=== PATIENT | male | born 1940 | race Caucasian/White ===

== ENCOUNTER 2021-01-25 16:40 | Emergency (ER) | payer BC, MEDICARE ==
[~2021-01-25] VITALS: Ht 195.6 cm; Wt 117.9 kg
--- NOTE | 2021-01-25 17:14 | NUR ---
at bedside for assessment
[2021-01-25] MEDS ORDERED: FAMOTIDINE 20 MG TABLET PO ONE (17:15)
[2021-01-25] MEDS ORDERED: DEXAMETHASONE 5 MG/5 ML LIQUID UDC PO ONE (17:15)
[2021-01-25] MEDS ORDERED: ONDANSETRON ODT 4 MG TAB.RAPDIS SL ONE (17:15)
[2021-01-25] MEDS ORDERED: ROSU10TA2 PO (17:16)
[2021-01-25] MEDS ORDERED: POLY17PO4 PO (17:16)
[2021-01-25] MEDS ORDERED: EPOE1000 IJ (17:16)
[2021-01-25] MEDS ORDERED: METO25TA6 PO (17:16)
[2021-01-25] MEDS ORDERED: CLOP75TA15 PO (17:16)
[2021-01-25] MEDS ORDERED: INSU100C SQ (17:16)
[2021-01-25] MEDS ORDERED: CALC0.253 PO (17:16)
[2021-01-25] MEDS ORDERED: LACT10SO3 PO (17:16)
[2021-01-25] MEDS ORDERED: FOLI0.8T2 PO (17:16)
[2021-01-25] MEDS ORDERED: SEVE800T8 PO (17:16)
[2021-01-25] MEDS ORDERED: PANT40TA49 PO (17:16)
[2021-01-25] MEDS ORDERED: ASPI-612 PO (17:16)
[2021-01-25] MEDS ORDERED: ONDANSETRON ODT 4 MG TAB.RAPDIS ONE (17:22)
[2021-01-25] MEDS ORDERED: FAMOTIDINE 20 MG TABLET ONE (17:22)
[2021-01-25] MEDS ORDERED: DEXAMETHASONE 5 MG/5 ML LIQUID UDC ONE (17:26)
[2021-01-25] MEDS ORDERED: PRED20TA PO (17:41)
[2021-01-25] MEDS ORDERED: DIPH25CA83 PO (17:41)
[2021-01-25] MEDS ORDERED: EPIN0.3A4 IM (17:41)
[2021-01-25 18:43] LABS: CARBON DIOXIDE 25 mmol/L (21-32); CHLORIDE 107 mmol/L (98-107); CREATININE 4.6 mg/dL (0.6-1.3); GLUCOSE 193 mg/dL (74-106); POTASSIUM 3.9 mmol/L (3.5-5.1); UREA NITROGEN, BLOOD 78 mg/dL (7-18)
[2021-01-25 18:48] LABS: BASOPHILS % (AUTO) 0.4 % (0.0-2.0); EOSINOPHILS % (AUTO) 0.1 % (0.0-7.0); HEMOGLOBIN 8.2 g/dL (12.5-16.3); LYMPHOCYTES # (AUTO) 0.2 K/uL (20.0-40.0); LYMPHOCYTES % (AUTO) 1.3 % (20.5-51.5); MEAN CORPUSCULAR HEMOGLOBIN 31.1 uug (23.8-33.4); MEAN CORPUSCULAR HGB CONC 31 g/dL (32.5-36.3); MEAN CORPUSCULAR VOLUME 99.2 fL (73.0-96.2); MONOCYTES # (AUTO) 0.2 K/uL (2.0-10.0); MONOCYTES % (AUTO) 1.6 % (0.0-11.0); NEUTROPHILS # (AUTO) 12.8 K/uL (1.8-8.9); NEUTROPHILS % (AUTO) 96.6 % (38.5-71.5); PLATELET COUNT (AUTO) 248 K/uL (152-348); RED BLOOD CELL COUNT(AUTO) 2.62 MIL/uL (4.06-5.63); WHITE BLOOD COUNT (AUTO) 13.2 K/uL (3.6-10.2)
[2021-01-25 19:32] VITALS: BP 119/64
--- NOTE | 2021-01-25 19:32 | NUR ---
Patient discharged to home in stable condition. Written and verbal after care instructions given. Patient verbalizes understanding of instructions. Stressed follow up or return to ER for worsening s/s. Steady gait. Belongings with patient.
== END 2021-01-25 19:33 | disposition left against medical advice (07) ==
LOC: ER 16:42
DX: L50.0 Allergic urticaria (principal); T45.4X5A Adverse effect of iron and its compounds, initial encounter; Y92.89 Other specified places as the place of occurrence of the external cause; I48.91 Unspecified atrial fibrillation; Z79.02 Long term (current) use of antithrombotics/antiplatelets; Z85.46 Personal history of malignant neoplasm of prostate; D50.9 Iron deficiency anemia, unspecified; Q27.33 Arteriovenous malformation of digestive system vessel; I45.10 Unspecified right bundle-branch block; E11.22 Type 2 diabetes mellitus with diabetic chronic kidney disease; I13.2 Hypertensive heart and chronic kidney disease with heart failure and with stage 5 chronic kidney disease, or end stage renal disease; I50.9 Heart failure, unspecified; N18.6 End stage renal disease; Z99.2 Dependence on renal dialysis; Z87.11 Personal history of peptic ulcer disease
CPT/HCPCS: 36415; 80048; 82962; 84484; 85025; 93005; 99291; 99292; J8540; 70030-TC; A4663; Q0162

== ENCOUNTER 2023-05-09 15:21 | Emergency (ER) | payer BC ==
[~2023-05-09] VITALS: Ht 195.6 cm; Wt 121.6 kg
[~2023-05-09 15:21] MED LIST: ASPI-612 PO; CALC0.253 PO; CLOP75TA15 PO; DIPH25CA83 PO; EPIN0.3A4 IM; EPOE1000 IJ; FOLI0.8T2 PO; INSU100C SQ; LACT10SO3 PO; METO25TA6 PO; PANT40TA49 PO; POLY17PO4 PO; PRED20TA PO; ROSU10TA2 PO; SEVE800T8 PO
[2023-05-09 16:07] LABS: HEMATOCRIT 29.1 % (36.7-47.1); MEAN CORPUSCULAR HEMOGLOBIN 34.5 uug (23.8-33.4); MEAN CORPUSCULAR VOLUME 104.2 fL (73.0-96.2); PLATELET COUNT (AUTO) 239 K/uL (152-348)
[2023-05-09] MEDS ORDERED: BUME2TAB7 PO (16:24)
[2023-05-09 16:27] LABS: ALANINE AMINOTRANSFERASE 19 U/L (16-63); ALKALINE PHOSPHATASE 73 U/L (50-136); ASPARTATE AMINOTRANSFERASE 12 U/L (15-37); BILIRUBIN,DIRECT 0.2 mg/dL (0.0-0.2); BILIRUBIN,TOTAL 0.4 mg/dL (0.2-1.0); CARBON DIOXIDE 31 mmol/L (21-32); CHLORIDE 101 mmol/L (98-107); CREATININE 3.1 mg/dL (0.6-1.3); POTASSIUM 3.7 mmol/L (3.5-5.1); TOTAL PROTEIN, SERUM 6.2 g/dL (6.4-8.2); UREA NITROGEN, BLOOD 45 mg/dL (7-18)
--- NOTE | 2023-05-09 17:58 | NUR ---
Patient discharged to home in stable condition. Written and verbal after care instructions given. Patient verbalizes understanding of instructions. Stressed follow up or return to ER for worsening s/s.
[2023-05-09 18:31] VITALS: BP 122/70; TEMP 98; O2SAT 99
== END 2023-05-09 18:32 | disposition home or self-care (01) ==
LOC: ER 15:21
DX: R06.02 Shortness of breath (principal); E11.22 Type 2 diabetes mellitus with diabetic chronic kidney disease; N18.6 End stage renal disease; I48.91 Unspecified atrial fibrillation; Z99.2 Dependence on renal dialysis; Z88.8 Allergy status to other drugs, medicaments and biological substances; Z79.899 Other long term (current) drug therapy
CPT/HCPCS: 36415; 71045; 84484; 85025; 93005; A4663